=== PATIENT | male | born 1965 | race Hispanic/Latino ===

== ENCOUNTER 2023-12-07 12:16 | Emergency (ER) | payer OTHER ==
[~2023-12-07] VITALS: Ht 167.6 cm; Wt 57.4 kg
[2023-12-07] MEDS ORDERED: VITAMIN D325 MC3 PO (12:35)
[2023-12-07] MEDS ORDERED: ACETAMINOPHEN500 MG PO (12:35)
[2023-12-07] MEDS ORDERED: LACTULOSE10 GM/15 M PO (12:36)
[2023-12-07] MEDS ORDERED: FUROSEMIDE20 MG PO (12:36)
[2023-12-07] MEDS ORDERED: MELATONIN1 MG PO (12:37)
[2023-12-07] MEDS ORDERED: PANTOPRAZOLE SO40 M2 PO (12:37)
[2023-12-07] MEDS ORDERED: MULTIPLE VITAM1 EAC1 PO (12:37)
[2023-12-07] MEDS ORDERED: SPIRONOLACTONE50 MG PO (12:37)
[2023-12-07 13:12] LABS: BASOPHILS 0.3 % (0-2); EOSINOPHILS 0.7 % (0-6); HEMATOCRIT 25.7 % (35.0-50.0); HEMOGLOBIN 8.7 g/dL (12.0-18.0); LYMPHOCYTES 8.4 % (24-44); MCH 33.5 (27-36); MCHC 33.8 g/dl (30-36); MCV 99.3 fl (81-99); MONOCYTES 11.2 % (0-12); NEUTROPHILS 79.4 % (39-80); PLATELET COUNT 76 K/uL (140-440); RBC 2.59 M/ul (4.3-5.7); RDW 21.9 (10.5-15.0)
[2023-12-07 13:18] LABS: INR 1.8 (0.80-1.30); PROTIME 20.5 Sec (11.2-14.2)
[2023-12-07 13:25] LABS: ALBUMIN 1.9 g/dL (3.4-5.0); ALBUMIN/GLOBULIN RATIO 0.37 (1.1-2.4); ANION GAP 14.9 (7-21); BILIRUBIN, TOTAL 2.4 ng/dL (0.2-1.0); BUN/CREATININE RATIO 14.51 (6.0-28.6); CALCIUM 8.4 mg/dL (8.5-10.1); CREATININE, SERUM 1.24 mg/dL (0.70-1.30); POTASSIUM 3.9 mmol/L (3.5-5.1); PROTEIN, TOTAL 7.1 g/dL (6.4-8.2)
--- NOTE | 2023-12-07 13:40 | NUR ---
13:32 [employer] IAM BARBOZA LIC# [id number]. 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 WE WENT THROUGH THE PROCESS OF EXPLANING THE PARASENTESIS PROCESURE, RISKS, BENEFITS AND THE POSIBILITY OF BLOOD TRANSFUSION ON THE CONSENT FORM. PATIENT WAS ALLOWED TO ASK QUESTION PRIOR TO SIGNING THE CONSENT. DR. ROBERTSON ENTER THE ROOM AND WHENT OVER THE CONSENT, PROCESURE, RISK AND BENEFIRTS ONCE AGAIN, CONFIRMED PATIENT NAME AND DATE OF , ALLOWED PATIENT TO ASK QUESTIONS AND THEN RELEASED MY SERVICES. iNTERPRETING ENDED AT 8426. SYLVESTER
--- OUTSIDE RECORDS SUMMARY | 2023-12-07 15:09 | XMS ---
PreManage Notification: ANTOLIN SAUNDERS Security Telemarketing Fundraiser Events No recent Security Events currently on file CRITERIA MET - [facility] - [facility] - 2 Visits in 30 Days CARE PROVIDERS -[facility] Dentist: Director Of Health Education [facility] PHONE: [phone] - [place]- Dentist: Director Of Health Education [facility] PHONE: [phone] ANG TALBOT Nurse Practitioner: [facility] PHONE: [phone] [place], [facility]: [facility] ([facility]) PHONE: [phone] JUAN ANTONIO STERLING Current PHONE: [phone] Reema has no Care Guidelines for this patient. EKamran VISIT COUNT (12 MO.) 2 Nelli Saldaña) 1 KERRIE Carpenter TOTAL 3 NOTE: Visits indicate total known visits. ED/UCC VISIT TRACKING (12 MO.) [facility] COMPLAINT: - ABDOMINAL PAIN 11/20/2023 20:58 [facility] Piper MORENO (Piper Saldaña) TYPE: Emergency DIAGNOSES: - Hepatic encephalopathy - Hepatic encephalopathy - Pneumonia, unspecified organism - Altered Mental - Altered Mental Status 07/17/2023 18:12 [facility] Piper MORENO (Piper Saldaña) TYPE: Emergency DIAGNOSES: - Hepatic encephalopathy - Altered Mental Status - confussed, fatigue INPATIENT VISIT TRACKING (12 MO.) [facility]23 [facility]: [facility] DIAGNOSES: - Acute kidney failure, unspecified - Anemia, unspecified - Chronic kidney disease, stage 3 unspecified - Chronic kidney disease, unspecified - Encephalopathy, unspecified - Esophageal varices without bleeding - Hepatic encephalopathy - Hepatic encephalopathy - Hepatic failure, unspecified without coma - Pneumonia, unspecified organism - Pneumonitis due to inhalation of food and vomit - Secondary esophageal varices with bleeding - Thrombocytopenia, unspecified - Unspecified cirrhosis of liver [email or web address]
[2023-12-07 16:16] VITALS: BP 132/92
[2023-12-07 16:44] LABS: APPEARANCE, BODY FLUID CLEAR; SOURCE, BODY FLUID ABDOMINAL
[2023-12-07 16:45] LABS: RBC, BODY FLUID 84; WBC, BODY FLUID 40
[2023-12-07 16:54] LABS: MONONUCLEAR CELLS, BODY FLUID 75; PMNS, BODY FLUID 25
== END 2023-12-07 15:51 | disposition home or self-care (01) ==
LOC: ED 12:16
PROVIDERS: Emergency Medicine
DX: R18.8 Other ascites (principal); E11.22 Type 2 diabetes mellitus with diabetic chronic kidney disease; N18.30 Chronic kidney disease, stage 3 unspecified; Z79.899 Other long term (current) drug therapy
CPT/HCPCS: 49083; 80053; 82140; 83690; 84112; 85025; 85610; 87070; 87075; 87205; 89051; 99284-25